=== PATIENT | male | born 1985 ===

== ENCOUNTER 2018-02-28 06:50 | Emergency (ER) | payer SELFPAY ==
[2018-02-28 06:57] VITALS: BP 137/87; PULSE 83; RESP 22; TEMP 97.6; O2SAT 98
--- NOTE | 2018-02-28 07:19 | C.PDOC ---
History Of Present Illness 32 y/o male, under arrest, brought to ER by police for medical clearance for incarceration. Patient states that he he feels like his "normal self." Denies having suicidal ideation, homicidal ideation, and active physical complaints. Denies having any significant PMhx. Time Seen by Provider: 02/28/18 07:13 Chief Complaint (Nursing): Medical Clearance History Per: Patient History/Exam Limitations: no limitations Past Medical History Reviewed: Historical Data, Nursing Documentation, Vital Signs Vital Signs: Last Vital Signs Temp 97.6 F 02/28/18 06:55 Pulse 83 02/28/18 06:55 Resp 22 02/28/18 06:55 BP 137/87 02/28/18 06:55 Pulse Ox 98 02/28/18 07:35 - Medical History PMH: No Chronic Diseases Surgical History: Appendectomy Family History: States: No Known Family Hx - Social History Hx Alcohol Use: Yes Hx Substance Use: No Review Of Systems Except As Marked, All Systems Reviewed And Found Negative. Constitutional: Negative for: Fever, Chills Physical Exam - Physical Exam Appears: Non-toxic, No Acute Distress Skin: Normal Color, Warm, Dry Head: Atraumatic, Normacephalic Eye(s): bilateral: Normal Inspection Nose: Normal Oral Mucosa: Moist Neck: Supple Chest: Symmetrical Cardiovascular: Rhythm Regular Respiratory: Normal Breath Sounds, No Rales, No Rhonchi, No Wheezing Gastrointestinal/Abdominal: Normal Exam, Soft, No Tenderness, No Guarding, No Rebound Extremity: Normal ROM Neurological/Psych: Oriented x3, Normal Speech ED Course And Treatment O2 Sat by Pulse Oximetry: 98 (RA) Pulse Ox Interpretation: Normal Medical Decision Making Medical Decision Making: Assessment: Medical Clearance for Incarceration Plan: Patient has a well- adult exam. Patient has been medically cleared for incarceration and discharged. Disposition Counseled Patient/Family Regarding: Diagnosis, Need For Followup - Disposition Disposition: HOME/ ROUTINE Disposition Time: 07:17 Condition: STABLE Additional Instructions: follow up with your doctor return to ER if symptoms develop patient is medically cleared for incarceration Instructions: Yearly Physical for Adults Forms: Gen Discharge Inst Faroese, [employer] (Faroese) - Clinical Impression Clinical Impression: Well adult exam, Medical clearance for incarceration - Scribe Statement The provider has reviewed the documentation as recorded by the Lavelle Joyce Provider Attestation: All medical record entries made by the Scribe were at my direction and personally dictated by me. I have reviewed the chart and agree that the record accurately reflects my personal performance of the history, physical exam, medical decision making, and the department course for this patient. I have also personally directed, reviewed, and agree with the discharge instructions and disposition.
== END 2018-02-28 07:25 | disposition home or self-care (01) ==
LOC: C.ER 06:50
DX: Z00.00 Encounter for general adult medical examination without abnormal findings (principal); Z02.89 Encounter for other administrative examinations

== ENCOUNTER 2018-11-04 23:40 | Emergency (ER) | payer OTHER | END 2018-11-05 02:30 | disposition home or self-care (01) | LOC: C.ER 23:40 ==